=== PATIENT | male | born 1975 | race Caucasian/White ===

== ENCOUNTER 2022-11-05 20:18 | Emergency (ER) | payer MEDICAID, SELFPAY ==
[2022-11-05 20:19] VITALS: BP 167/100; PULSE 114; RESP 20; TEMP 35.9; O2SAT 97; BMI 30.5
[2022-11-05] MEDS: Albuterol 2.5 MG/3 ML VIAL.NEB. INHALATION (20:42)
[2022-11-05] MEDS: Ipratropium/Albuterol Sulfate 3 ML AMPUL.NEB INHALATION (20:42)
[2022-11-05 20:44] VITALS: PULSE 114; RESP 20
--- NOTE | 2022-11-05 20:45 | RAD_ITS ---
EXAM: XR CHEST, 1 VIEW CLINICAL INDICATION: cough TECHNIQUE: Frontal view of the chest. This report was created using [employer] report generation technology. COMPARISON: 11.06.13 FINDINGS: LUNGS AND PLEURAL SPACES: Unremarkable. No consolidation or edema. No pneumothorax. No effusion. HEART: Unremarkable. Cardiac silhouette not enlarged. MEDIASTINUM: Central airways and mediastinal contour are unremarkable. BONES/JOINTS: Unremarkable. SOFT TISSUES: Unremarkable. RAD/Chest 1 View (Portable) IMPRESSION: No radiographic evidence of acute cardiopulmonary disease. Electronically Signed: Venkat Maldonado MD at 21:11 EDT ,
--- NOTE | 2022-11-05 20:48 | ED.VIS.DYS ---
HPI History of Present Illness Chief Complaint: Cough Narrative Narrative: 47-year-old male presenting with cough. He states he had nasal drainage and cough for several months. He does not have a primary care physician. He states he does have insurance. He has not had fever, chills, body aches. He has a smoker. He states he feels like he is wheezing. No chest pain. PFSH PFSH Medical History Smoker Home Medications bupropion HCl 300 mg 24 hr tablet, extended release (Wellbutrin XL) 300 mg PO DAILY 11/05/22 [History Last Taken Unknown] dexamethasone 6 mg tablet 6 mg PO DAILY #5 tabs 11/05/22 [Rx Last Taken Unknown] Allergy/AdvReac Type Severity Reaction Status Date / Time prednisone AdvReac Rash Verified 11/05/22 20:22 Social History Smoking Status: Current every day smoker tobacco type: cigarettes ROS ROS ED Constitutional Constitutional ED: Denies chills or fever(s) Eyes Eyes: Denies change in vision ENT ENT ED: Reports rhinorrhea; Denies sore throat Cardiovascular Cardiovascular: Denies chest pain or palpitations Respiratory/Chest Respiratory/Chest: Reports cough and dyspnea Gastrointestinal Gastrointestinal: Denies abdominal pain, nausea or vomiting Genitourinary Genitourinary ED: Denies dysuria or hematuria Musculoskeletal Musculoskeletal: Denies arthralgias Integumentary Denies abscess Neurologic Neurologic: Denies headache(s) or paresthesias EXAM Physical Exam Const Vital Signs: 11/05/22 20:19 11/05/22 20:19 11/05/22 20:36 Temperature 96.7 F L 96.7 F L Temperature Source Temporal Temporal Pulse Rate 114 H 114 H Respiratory Rate 20 H 20 H Respiratory Effort Normal Respiratory Depth Normal Respiratory Pattern Normal Blood Pressure 167/100 H 167/100 H Blood Pressure Mean 122 122 Pulse Ox 97 97 Oxygen Delivery Method Room Air Room Air Room Air 11/05/22 20:44 Temperature Temperature Source Pulse Rate 114 H Respiratory Rate 20 H Respiratory Effort Respiratory Depth Respiratory Pattern Blood Pressure Blood Pressure Mean Pulse Ox Oxygen Delivery Method Positive well nourished General Appearance ED: NAD HEENT Reports moist mucous membranes Eyes PERRL and EOMs intact bilaterally Neck no lymphadenopathy Resp normal respiratory effort Auscultation: wheezes expiratory wheezes Cardio regular rate and regular rhythm Neuro oriented x3 and CN's II-XII intact bilaterally Motor Exam: strength 5/5 throughout Psych mental status grossly normal Skin no wounds MDM MDM MDM Narrative Medical decision making narrative: Patient presenting with cough for several months. Patient is wheezing on examination. He states he is a smoker. No known history of COPD. He states he is allergic to prednisone and he states he gets a rash from his. He was given breathing treatments. I will obtain a chest x-ray. Chest x-ray my interpretation shows no acute cardiopulmonary process. Radiologist interprets this and agrees. Patient is feeling improved after breathing treatments and dexamethasone. He is given albuterol inhaler to take home with him. I will give him his short supply of dexamethasone. He is given ER follow-up. Return precautions discussed. Impression: 1. Bronchitis Radiography Diagnostic Testing: Clinical Impression(s) from Imaging Studies Chest X-Ray 11/05/22 20:45 IMPRESSION: No radiographic evidence of acute cardiopulmonary disease. Electronically Signed: Venkat Maldonado MD at 21:11 EDT Reading Location ID and State: [facility] / [place] , Service support , Discharge Plan Triage Chief Complaint: Cough ED Provider: Patrick Vines Dx/Rx/DC Orders Instructions: ED Bronchitis with Wheezing (Adult) Prescriptions: New dexamethasone 6 mg tablet 6 mg PO DAILY Qty: 5 0RF No Action bupropion HCl [Wellbutrin XL] 300 mg Tablet Extended Release 24 Hr 300 mg PO DAILY Primary Care Provider: Care Physician,No Primary Referrals: Elicia Sadler MD [Med Staff - [employer]] - 3-5 Days Care Physician,No Primary [Primary Care Provider] - Disposition Disposition: Home, Self Care
[2022-11-05] MEDS: dexAMETHasone 4 MG Tablet 6 MG PO (21:24)
[2022-11-05] MEDS: Albuterol Sulfate 8 gm Inhaler (60 puffs) 2 PUFF INHALATION (21:52)
[2022-11-05 22:00] VITALS: PULSE 88; RESP 16; O2SAT 98
== END 2022-11-05 22:02 | disposition home or self-care (01) ==
PROVIDERS: Emergency Provider Student in an Organized Health Care Education/Training Program; Visit Provider Student in an Organized Health Care Education/Training Program
DX: J40 Bronchitis, not specified as acute or chronic (principal); F17.210 Nicotine dependence, cigarettes, uncomplicated; R06.2 Wheezing
CPT/HCPCS: 71045; 94640; 99283